=== PATIENT | female | born 1990 | race Caucasian/White ===

== ENCOUNTER 2016-02-28 20:05 | Emergency (ER) | payer OTHER ==
[~2016-02-28] VITALS: Ht 162.5 cm; Wt 81.6 kg
[~2016-02-28 20:05] MED LIST: CIPROFLOXACIN500 MG PO; CLARITIN10 MG PO; HYDROCODONE BIT1 T11 PO; MOTRIN800 MG PO; Motrin,Rufen800 MG PO; PERCOCET 325 MG1 TA2 PO; TRAMADOL HCL50 MG PO; ULTRAM50 MG PO; VICODIN 5/500 505 MG PO; VOLTAREN50 M1 PO; ZANTAC150 MG PO; ZITHROMAX Z PA250 MG PO
[2016-02-28 21:12] VITALS: BP 148/92
== END 2016-02-28 21:15 | disposition home or self-care (01) ==
LOC: ED 20:05
DX: S40.021A Contusion of right upper arm, initial encounter (principal); F17.200 Nicotine dependence, unspecified, uncomplicated; Z88.0 Allergy status to penicillin; W23.0XXA Caught, crushed, jammed, or pinched between moving objects, initial encounter; Y93.89 Activity, other specified; Y92.9 Unspecified place or not applicable; Y99.9 Unspecified external cause status

== ENCOUNTER 2017-10-25 08:31 | Emergency (ER) | payer SELFPAY ==
[~2017-10-25] VITALS: Ht 152.4 cm; Wt 90.8 kg
[2017-10-25 08:32] VITALS: BP 145/88
== END 2017-10-25 10:21 | disposition home or self-care (01) ==
LOC: ED 08:31
DX: S89.92XA Unspecified injury of left lower leg, initial encounter (principal); Z88.0 Allergy status to penicillin; X58.XXXA Exposure to other specified factors, initial encounter; Y93.89 Activity, other specified; Y92.89 Other specified places as the place of occurrence of the external cause; Y99.8 Other external cause status

== ENCOUNTER 2021-11-03 19:04 | Emergency (ER) | payer OTHER ==
[2021-11-03 20:52] VITALS: BP 150/94
[2021-11-03] MEDS ORDERED: HYDROCODONE-AC1 EAC2 PO (22:48)
== END 2021-11-03 23:08 | disposition home or self-care (01) ==
LOC: ED 19:04
DX: S82.52XA Displaced fracture of medial malleolus of left tibia, initial encounter for closed fracture (principal); S16.1XXA Strain of muscle, fascia and tendon at neck level, initial encounter; S80.11XA Contusion of right lower leg, initial encounter; S00.03XA Contusion of scalp, initial encounter; M25.572 Pain in left ankle and joints of left foot; M54.2 Cervicalgia; Z88.0 Allergy status to penicillin; Z98.890 Other specified postprocedural states; V69.59XA Passenger in heavy transport vehicle injured in collision with other motor vehicles in traffic accident, initial encounter; Y93.89 Activity, other specified; Y92.488 Other paved roadways as the place of occurrence of the external cause; Y99.8 Other external cause status

== ENCOUNTER → 2021-12-15 | Outpatient (CLI) | payer OTHER ==
[~2021-12-15] MED LIST changes: +HYDROCODONE-AC1 EAC2 PO
== END | disposition home or self-care (01) ==
LOC: RAD 17:23
PROVIDERS: ATTEND Family Medicine
DX: M25.511 Pain in right shoulder (principal)

== ENCOUNTER 2023-12-04 18:28 | Emergency (ER) | payer OTHER ==
[~2023-12-04] VITALS: Ht 154.9 cm; Wt 99.8 kg
[2023-12-04] MEDS ORDERED: Ondansetron Hydrochloride 4 MG TAB SL ONE (19:00)
[2023-12-04 19:12] LABS: BASO % 0.4 % (0.0-1.0); EOS # 0.1 10*3/uL (0.0-0.4); EOS % 0.8 % (1.0-4.0); HEMATOCRIT 38.7 % (37.0-47.0); LYMPH # 2.3 10*3/uL (1.3-4.4); LYMPH % 22.5 % (27.0-41.0); MEAN CELL VOLUME 91.5 fl (81.0-99.0); MEAN CORPUSCULAR HGB CONC 33.9 g/dl (33.0-37.0); MEAN PLATELET VOLUME 9.1 fl (9.6-12.3); MONO # 0.9 10*3/uL (0.1-1.0); MONO % 8.6 % (3.0-9.0); NEUT # 6.9 10*3/uL (2.3-7.9); NEUT % 67.4 % (47.0-73.0); PLATELET COUNT AUTOMATED 333 10*3/uL (130-400); RED BLOOD COUNT 4.23 10*6/uL (4.10-5.10); RED CELL DISTRI WIDTH 11.9 % (0-14.5); WHITE BLOOD COUNT 10.3 10*3/uL (4.8-10.8)
[2023-12-04 19:32] LABS: ALKALINE PHOSPHATASE 61 U/L (46-116); BUN 8 mg/dl (9-23); CHLORIDE 106 mmol/L (98-107); LIPASE 31 U/L (12-53); POTASSIUM 3.1 mmol/L (3.4-5.1); SGPT/ALT 30 U/L (5-49); TOTAL PROTEIN 6.9 gm/dL (6.0-8.0)
[2023-12-04 20:07] LABS: BILIRUBIN Negative (Negative); BLOOD 3+ (Negative); CLARITY Clear (Clear); COLOR Yellow (Yellow); GLUCOSE Negative (Negative); KETONE Trace (Negative); LEUKO ESTERASE Negative (Negative); NITRITE Negative (Negative); PH 7.5 (4.5-8.0); SPECIFIC GRAVITY 1.015 (1.001-1.030)
[2023-12-04 20:23] LABS: BACTERIA 1+; MUCOUS 1+; RBC 21-30 rbc/hpf (0-2)
[2023-12-04] MEDS ORDERED: Pantoprazole Sodium 20 MG TAB PO ONE ×2 (21:15)
[2023-12-04] MEDS ORDERED: OMEPRAZOLE40 MG PO (21:16)
[2023-12-04] MEDS ORDERED: Ondansetron4 MG PO (21:16)
[2023-12-04 21:21] VITALS: BP 148/97
== END 2023-12-04 21:21 | disposition home or self-care (01) ==
LOC: ED 18:28
PROVIDERS: Internal Medicine
DX: B34.9 Viral infection, unspecified (principal); E87.6 Hypokalemia; R11.2 Nausea with vomiting, unspecified; R10.11 Right upper quadrant pain; Z98.890 Other specified postprocedural states